=== PATIENT | female | born 1960 ===

== ENCOUNTER 2018-06-15 10:45 | Outpatient (CLI) | payer OTHER ==
[~2018-06-15] VITALS: Ht 152.4 cm; Wt 83.9 kg
== END 2018-06-15 11:00 | disposition home or self-care (01) ==
LOC: OFIC 805 10:45
DX: H90.41 Sensorineural hearing loss, unilateral, right ear, with unrestricted hearing on the contralateral side (principal); H93.11 Tinnitus, right ear

== ENCOUNTER 2018-07-27 10:27 | Outpatient (CLI) | payer OTHER | END 2018-07-27 10:40 | disposition home or self-care (01) | LOC: OFIC 805 10:27 | DX: H90.41 Sensorineural hearing loss, unilateral, right ear, with unrestricted hearing on the contralateral side (principal); H93.11 Tinnitus, right ear ==

== ENCOUNTER 2018-11-20 09:27 | Outpatient (CLI) | payer OTHER | END 2018-11-20 09:33 | disposition home or self-care (01) | LOC: SONOGRAMA 09:27 | DX: E04.2 Nontoxic multinodular goiter (principal) ==